=== PATIENT | male | born 1995 | race Caucasian/White ===

== ENCOUNTER 2019-06-02 16:21 | Emergency (ER) | payer OTHER ==
[~2019-06-02] VITALS: Ht 175.3 cm; Wt 59.0 kg
--- NOTE | 2019-06-02 16:22 | NUR ---
Attempted to triage pt, pt was not found in ER waiting room or outside ER.
[2019-06-02 16:58] LABS: BASOPHILS % (AUTO) 0.7 % (0.0-2.0); EOSINOPHILS % (AUTO) 0.6 % (0.0-7.0); HEMATOCRIT 38.3 % (36.7-47.1); LYMPHOCYTES % (AUTO) 17.2 % (20.5-51.5); MEAN CORPUSCULAR HEMOGLOBIN 30.4 uug (23.8-33.4); MEAN CORPUSCULAR HGB CONC 34 g/dL (32.5-36.3); MEAN CORPUSCULAR VOLUME 89.6 fL (73.0-96.2); MONOCYTES # (AUTO) 0.7 K/uL (2.0-10.0); MONOCYTES % (AUTO) 11.1 % (0.0-11.0); NEUTROPHILS # (AUTO) 4.2 K/uL (1.8-8.9); NEUTROPHILS % (AUTO) 70.4 % (38.5-71.5); PLATELET COUNT (AUTO) 317 K/uL (152-348); RED BLOOD CELL COUNT(AUTO) 4.28 MIL/uL (4.06-5.63)
[2019-06-02 17:06] LABS: CARBON DIOXIDE 29 mmol/L (21-32); CHLORIDE 108 mmol/L (98-107); CREATININE 0.8 mg/dL (0.6-1.3); GLUCOSE 80 mg/dL (74-106); POTASSIUM 3.5 mmol/L (3.5-5.1); UREA NITROGEN, BLOOD 12 mg/dL (7-18)
[2019-06-02 17:11] LABS: ETHANOL < 3 MG/DL (0-0)
[2019-06-02 17:12] LABS: ALANINE AMINOTRANSFERASE 193 U/L (16-63); ALKALINE PHOSPHATASE 71 U/L (50-136); ASPARTATE AMINOTRANSFERASE 98 U/L (15-37); BILIRUBIN,DIRECT 0.1 mg/dL (0.0-0.2); BILIRUBIN,TOTAL 0.2 mg/dL (0.2-1.0); TOTAL PROTEIN, SERUM 7.2 g/dL (6.4-8.2)
[2019-06-02 17:13] LABS: ACETAMINOPHEN < 2.0 ug/mL (10-30)
--- NOTE | 2019-06-02 17:18 | NUR ---
PT MEDICALLY CLEARED, CALLED [facility] FOR PSYCH EVAL. ETA ONE HOUR.
--- NOTE | 2019-06-02 17:37 | NUR ---
Patient discharged to home in stable conditon. Written and verbal after care instructions given. Patient verbalizes understanding of instructions.PT WALKS IN STEADY GAIT. PT SAYS FEELS BETTER, DENIES SI OR DANGER TO SELF. PT CALLED FRIEND TO COME AND PICK THE PT UP.
[2019-06-02 17:38] VITALS: BP 112/71
[2019-06-02 17:47] LABS: *BILIRUBIN,URIN NEGATIVE (NEGATIVE); *BLOOD, URINE NEGATIVE (NEGATIVE); *CLARITY,URINE CLEAR (CLEAR); *COLOR,URINE YELLOW (YELLOW); *KETONES,URINE NEGATIVE (NEGATIVE); LEUKOCYTE ESTERASE ,URINE NEGATIVE (NEGATIVE); NITRITE, URINE NEGATIVE (NEGATIVE); UGLUCOSE NEGATIVE (NEGATIVE)
[2019-06-02 18:00] LABS: CALCIUM OXALATE CRYSTALS,UR MODERATE /HPF (NONE SEEN); MUCUS,URINE FEW /LPF (0-FEW); WBC,URINE NONE SEEN /HPF (0-3)
[2019-06-02 18:04] LABS: *AMPHETAMINE, URINE NEGATIVE (NEGATIVE); *BARBITURATE, URINE NEGATIVE (NEGATIVE); *CANNABINOID, URINE NEGATIVE (NEGATIVE); *COCCAINE, URINE NEGATIVE (NEGATIVE); *OPIATE, URINE NEGATIVE (NEGATIVE); *PHENCYCLIDINE SCREEN,URINE NEGATIVE (NEGATIVE)
== END 2019-06-02 17:39 | disposition home or self-care (01) ==
LOC: ER 16:28
DX: F32.9 Major depressive disorder, single episode, unspecified (principal); Z79.899 Other long term (current) drug therapy
CPT/HCPCS: 36415; 80048; 80076; 80307; 81000; 81001; 85025; 99284; G0480 ×2; G0481; A4663